=== PATIENT | male | born 1930 | race Caucasian/White ===

== ENCOUNTER 2019-04-17 17:14 | Observation (INO) ==
--- NOTE | 2019-04-17 17:32 | Emergency Department Note ---
ED Disposition Clinical Impression: Chest pain Qualifiers: Chest pain type: precordial pain Qualified Code(s): R07.2 - Precordial pain Ascites Qualifiers: Ascites type: other type Qualified Code(s): R18.8 - Other ascites Disposition: Admitted as Observation Condition on Discharge: Good Referrals: Provider,Referral, [Referring] - - Critical Care Critical Care Time: No Attestation: On , the high probability of a clinically significant, sudden or life threatening deterioration of the following system(s) required my full and direct attention, intervention and personal management. The time I documented below is in addition to time spent performing reported procedures but includes the following listed in this critical care notation. Medical Decision Making - Jason Inquiry Pt receiving controlled substance: No Vital Signs: 04/17/19 17:15 04/17/19 17:59 Pulse Rate [Right] 72 69 Respiratory Rate 18 20 Blood Pressure [Right Arm] 115/58 L 111/68 Blood Pressure Mean [Right Arm] 77 82 Blood Pressure Source [Right Arm] Automatic Cuff Blood Pressure Position [Right Arm] Supine 02 Sat by Pulse Oximetry 98 99 Oxygen Delivery Method Room Air Room Air - Lab Data Lab Results 04/17/19 17:15: WBC 5.6, RBC 3.22 L, Hgb 11.2 L, Hct 34.2 L, MCV 106.3 H, MCH 34.8 H, MCHC 32.7, RDW 15.3, Plt Count 89 L, MPV 10.3, Neut % (Auto) 73.4, Lymph % (Auto) 15.8, [place] % (Auto) 7.8, Eos % (Auto) 2.1, Baso % (Auto) 0.9, Neut # (Auto) 4.1, Lymph # (Auto) 0.9, [place] # (Auto) 0.4, Eos # (Auto) 0.1, Baso # (Auto) 0.1 04/17/19 17:15: Sodium 140, Potassium 3.7, Chloride 106, Carbon Dioxide 24, Anion Gap 13.7, BUN 35 H, Creatinine 2.04 H, Estimated Creat Clear 26, Estimated GFR 31 L, Est GFR ( Amer) 37 L, Glucose 98, Calcium 7.9 L, Troponin I 0.03 Result diagrams: 04/17/19 17:15 04/17/19 17:15 Orders (Tests/Meds): ORDERS Category Date Time Status CXR --portable [XR chest portable] Stat Exams 04/17/19 17:32 Taken Troponin I Q3H Lab 04/17/19 20:45 Ordered Troponin I Q3H Lab 04/17/19 23:45 Ordered - Radiology Data #1 Image(s): Chest Image Reviewed: Yes I reviewed the patient's radiology image Pacemaker. Bilateral pleural effusions. - ECG Data Tracing #1 EKG interpreted by Joey Zhang MD: Rhythm: Ventricular paced rhythm Ectopy: Premature ventricular contractions rate: 79 No evidence of acute ischemia or injury - Physician Consults Physician Consulted: virgen Green Time: 17:49 Reason -: Pt condition Comment/Response: Discussed paracentesis. He says patient could be worked in tomorrow. Additional Consult: Shae Carrion Time: 18:29 Reason -: Admission Comment/Response: Discussed disposition. Agrees to admit the patient to the hospital. We discussed the patient's clinical information, including history, exam, laboratory and radiology results and ED course. Per hospital procedure, I will write temporary bridge inpatient orders on the patient. Specific orders requested by the admitting physician: Serial troponins. Paracentesis in the morning. General Adult HPI - General Stated complaint: chest pain Time Seen by Provider: 04/17/19 17:31 - History of Present Illness HPI narrative: Complains of chest pain that started about an hour and a half ago while at rest. Describes the pressure left anterior chest that lasted for about 30 to 40 minut es. Associated with mild shortness of breath and nausea, but no vomiting. No diaphoresis. Pain-free at this time. Family states that he had the same pain 3 weeks ago and had to have emergency paracentesis. They related his chest pain to increase fluid in his abdomen. He has not had pain since. He has not had pain prior to previous paracentesis. 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 He does have a pacemaker placed by Dr. Negrete. His special assemblies supervisor is Dr. Fabian madison. His metaphysics teacher is Dr. Rivera. His primary care doctor is Dr. Carrion. Family states that he is scheduled for paracentesis on next Sunday, but they do not think he can wait that long. They state that he is abdomen is very full. Currently the patient denies a feeling of abdominal distention or pain or difficulty breathing. They also state that he is scheduled for a full abdominal ultrasound tomorrow morning as an outpatient, ordered by Dr. Rivera. They question whether paracentesis can be performed at that time. - Related Data Home Medications Medication Instructions Recorded Confirmed Calcium Carbonate [Calcium] 600 mg PO DAILY 05/28/17 04/17/19 Magnesium Oxide [Mag-Ox 400mg Tab] 400 mg PO DAILY 05/28/17 04/17/19 Nitroglycerin 0.4 mg SL Q5MINP PRN 05/28/17 04/17/19 Potassium Chloride [Klor-con 20 20 meq PO DAILY 05/28/17 04/17/19 mEq tablet] Simvastatin 10 mg PO DAILY 05/28/17 04/17/19 Allopurinol [Allopurinol 100mg 100 mg PO DAILY 07/18/17 04/17/19 tablet] metolazone 2.5 mg tablet 2.5 mg PO DAILY PRN 10 Days #10 11/01/17 04/17/19 apixaban 2.5 mg tablet 2.5 mg PO DAILY 30 Days #60 01/21/18 04/17/19 Ferrous Sulfate [Ferrous Sulfate 325 mg PO BID 09/27/18 04/17/19 325mg Tablet] torsemide 10 mg tablet 20 mg PO DAILY tab 11/21/18 04/17/19 Nebivolol HCl [Bystolic] 2.5 mg PO HS 01/06/19 04/17/19 [place]-3S/Dha/Epa/Fish Oil/D3 [Fish 1 each PO DAILY 01/06/19 04/17/19 Oil + D3 Softgel] alpha lipoic acid 200 mg capsule 200 mg PO DAILY cap 02/20/19 04/17/19 cholecalciferol (vitamin D3) 50,000 unit PO QWEEK 02/20/19 04/17/19 50,000 unit capsule vitamin E 200 unit capsule 400 unit PO DAILY cap 02/20/19 04/17/19 loperamide 2 mg capsule 2 mg PO Q4H 04/17/19 04/17/19 bwjtqejjddub-sqohaisi-qywsky tablet 1 tab PO DAILY 04/17/19 04/17/19 nebivolol 2.5 mg tablet 2.5 mg PO DAILY 04/17/19 04/17/19 Allergies Allergy/AdvReac Type Severity Reaction Status Date / Time No Known Allergies Allergy Verified 04/17/19 09:11 [facility] History - Hepatitis A Screen Attestation statement:: This patient has been screened for Hepatitis A risk factors. I have reviewed the patient's past medical history: Yes Medical History: Reports:: Arrhythmia, Atrial Fibrillation, Congestive Heart Failure, Chronic Obstructive Pulmonary Disease (COPD), Hyperlipidemia, Hypertension, Internal Pacemaker, Myocardial Infarction, Renal Insufficiency Denies:: Cancer, Diabetes Mellitus Type 1, Diabetes Mellitus Type 2, MRSA Other Medical History: Reports: Anemia, Arthritis, Cataracts Comment: BPH Other Surgeries: Yes: Appendectomy, Cardiac Catheterization (ABLATION, PACEMAKER), Colon Resection, Hernia Repair, Pacemaker, Other Amputation: No Fractures: Yes (right lower leg broken in two places ) Comment: Bilateral inguinal hernia repairs. Small bowel resection for complete obstruction. Prostate Surgery - Social History Smoking Status: Never smoker # Packs/Day (cigarettes): 1 Alcohol Intake: never Alcohol Intake Frequency:: other Substance Use Type: denies use Occupational Status: retired Housing: house Household Members: spouse Family Hx:: Cancer, Heart Attack, Hyperlipidemia, Hypertension ROS Obtained: Yes All systems reviewed & no additional complaints - Constitutional Constitutional: Denies fever(s) - Cardiovascular Cardiovascular: Reports chest pain, Denies diaphoresis - Respiratory Respiratory: Yes dyspnea - Gastrointestinal Gastrointestingal: Reports: bloating, nausea. Denies: abdominal pain, vomiting Physical Exam - General General appearance: alert, in no apparent distress - Head Head exam: atraumatic, normocephalic - Eye Eye exam: Present: normal appearance, EOMI - ENT ENT exam: Present: mucous membranes moist - Neck Neck exam: Present: normal inspection, trachea midline - Chest Chest inspection: Present: normal inspection, symmetric chest wall rise - Respiratory Respiratory exam: Present: normal lung sounds bilaterally. Absent: respiratory distress - Cardiovascular Cardiovascular exam: Present: regular rate, normal rhythm, normal heart sounds - Abdominal Exam Abdominal exam: Present: distention (ascites), normal bowel sounds. Absent: tenderness, guarding, rebound - Extremities Exam Extremities exam: Present: normal capillary refill, other (trace to 1+ pitting edema) - Neurological Exam Neurological exam: Present: alert, oriented X3 - Psychiatric Psychiatric exam: Present: normal affect, normal mood - Skin Skin exam: Present: warm, dry
[2019-04-17 17:41] LABS: Basophils # 0.1 K/mm3 (0-0.2); Basophils % 0.9 % (0.1-2.0); Eosinophils # 0.1 K/mm3 (0.0-0.4); Eosinophils % 2.1 % (0.1-12.0); Hematocrit 34.2 % (42.0-52.0); Hemoglobin 11.2 g/dL (14.1-18.0); Lymphocytes # 0.9 K/mm3 (0.7-4.5); Lymphocytes % 15.8 % (10-50); Mean Corpuscular HGB Conc 32.7 g/dL (31.8-35.4); Mean Corpuscular Volume 106.3 fl (80-94); Mean Platelet Volume 10.3 fl (7.4-10.4); Monocytes # 0.4 K/mm3 (0.1-1.0); Monocytes % 7.8 % (1.7-9.3); Neutrophils # 4.1 K/mm3 (1.8-7.8); Neutrophils % 73.4 % (37.0-80.0); Platelet Count 89 K/mm3 (142-424); Red Blood Count 3.22 M/mm3 (4.60-6.20); Red Cell Distribution Width 15.3 % (11.5-17.5); White Blood Count 5.6 K/mm3 (4.8-10.8)
[2019-04-17 17:53] LABS: Anion Gap 13.7 mEq/L (5-15); Calcium 7.9 mg/dL (8.5-10.1)
--- NOTE | 2019-04-18 07:26 | Pharmacy Consult Notes ---
[facility] Pharmacy VTE Monitoring - Patient Demographics Admission date: 04/17/19 Report Date: 04/18/19 Time: 07:25 Allergies/Adverse Reactions: Patient Allergies No Known Allergies Allergy (Verified 04/17/19 09:11) Height: 1.83 m Weight: 71.724 kg Patient Problems: Current Active Problems Chest pain (Acute) Ascites (Acute) - VTE Risk Labs: VTE Related Lab Results Hgb 11.2 g/dL (14.1-18.0) L 04/17/19 17:15 Hct 34.2 % (42.0-52.0) L 04/17/19 17:15 Plt Count 89 K/mm3 (142-424) L 04/17/19 17:15 BUN 35 mg/dL (7-18) H 04/17/19 17:15 Creatinine 2.04 mg/dL (0.70-1.30) H 04/17/19 17:15 Estimated Creat Clear 26 mL/min (50-200) 04/17/19 17:15 Was VTE Risk Assessment Performed: Yes VTE Score: 7 VTE Risk Level: Moderate Risk Clinical Trial Participant: No - Prophylaxis VTE Prophylaxis Ordered?: Yes Types of VTE Prophylaxis: TEDS Knee High, Pharmacological (eliquis)
--- NOTE | 2019-04-18 08:11 | Electrocardiograph Report ---
APPROVED REPORT Exam: Resting ECG HR:79 bpm ECG Measurements Heart Rate 79 AXES QRSd 138 QRS -64 QT 468 T103 QTc 536 <Conclusion> Electronic ventricular pacemaker Electronically signed by : Manas Campa, 04/18/2019 08:11:25
--- NOTE | 2019-04-18 14:29 | H&P/Discharge Summary ---
<Kenya Angel - Last Filed: 04/18/19 14:25> General - General Admission date:: 04/17/19 Discharge date: 04/18/19 *Admission Date: 04/17/19 *Chief complaint: chest pain, abdominal swelling *History of present illness: Mr. Gallego is an 88-year-old male with a history of hypertension, hyperlipidemia, A. fib, renal insufficiency, and cirrhosis with ascites. He is currently followed by Dr. Bragg and has been getting a paracentesis approximately every 3 weeks. His states he was supposed to have a paracentesis next Sunday, but began having shortness of breath and some chest pain yesterday. He presented to the emergency room for evaluation and was admitted overnight for cardiac monitoring and to have a paracentesis today. He has not had any further chest pain since admission and his cardiac enzymes have returned normal. [facility] History I have reviewed the patient's past medical history: Yes Medical History: Reports:: Arrhythmia, Atrial Fibrillation, Congestive Heart Failure, Chronic Obstructive Pulmonary Disease (COPD), Hyperlipidemia, Hypertension, Internal Pacemaker, Myocardial Infarction, Renal Insufficiency Denies:: Cancer, Diabetes Mellitus Type 1, Diabetes Mellitus Type 2, MRSA *Have you ever received a pneumonia vaccine?: No *Have you received a flu vaccine this season?: No Other Medical History: Reports: Anemia, Arthritis, Cataracts, Other (Cirrhosis with ascites) Laterality Cases: Bilateral: Cataract Other Surgeries: Yes: Appendectomy, Cardiac Catheterization (ABLATION, PACEMAKER), Colonoscopy, Colon Resection, Hernia Repair, Pacemaker, Other (thoracentesis and paracentesis) Amputation: No Fractures: Yes (right lower leg broken in two places ) - *Social History Educational Level: Attended High School Smoking Status: Never smoker # Packs/Day (cigarettes): 1 Alcohol Intake: never Alcohol Intake Frequency:: other Substance Use Type: denies use *Occupational Status:: retired Housing: house Household Members: spouse *Travel in the last 8 weeks: None Family Hx:: Heart Attack, Stroke Review of Systems - Constitutional Reports fatigue, Reports weakness, Reports weight gain, Denies chills - Eyes Denies blurry vision, Denies double vision - ENT Denies nasal congestion, Denies sore throat - *Cardiovascular Reports chest pain, Reports shortness of breath, Denies rapid, pounding, or irregular heartbeat - *Respiratory Denies chest congestion, Denies cough - *Gastrointestinal Reports other (abdominal distention), Denies abdominal pain, Denies loose stools, Denies nausea, Denies vomiting - *Genitourinary Denies difficulty urinating, Denies painful urination - *Musculoskeletal Denies joint pain - *Neurologic Reports weakness, Denies headache(s), Denies dizziness Exam Vital signs and Labs for Last 24 Hours: Temp Pulse Resp BP Pulse Ox 97.5 F L 70 16 108/72 L 97 04/18/19 11:18 04/18/19 12:00 04/18/19 11:18 04/18/19 11:18 04/18/19 11:18 Laboratory Results - last 24 hr 04/17/19 17:15: WBC 5.6, RBC 3.22 L, Hgb 11.2 L, Hct 34.2 L, MCV 106.3 H, MCH 34 .8 H, MCHC 32.7, RDW 15.3, Plt Count 89 L, MPV 10.3, Neut % (Auto) 73.4, Lymph % (Auto) 15.8, [place] % (Auto) 7.8, Eos % (Auto) 2.1, Baso % (Auto) 0.9, Neut # (Auto) 4.1, Lymph # (Auto) 0.9, [place] # (Auto) 0.4, Eos # (Auto) 0.1, Baso # (Auto) 0.1 04/17/19 17:15: Sodium 140, Potassium 3.7, Chloride 106, Carbon Dioxide 24, Anion Gap 13.7, BUN 35 H, Creatinine 2.04 H, Estimated Creat Clear 26, Estimated GFR 31 L, Est GFR ( Amer) 37 L, Glucose 98, Calcium 7.9 L, Troponin I 0.03 04/17/19 20:27: Troponin I 0.04 04/17/19 23:47: Troponin I 0.05 I & O for Last 24 hours: Intake & Output 04/16/19 04/17/19 04/18/19 04/19/19 11:59 11:59 11:59 11:59 Intake Total 240 / 240 Output Total 300 / 300 Balance -300 / -300 240 / 240 Weight 158 lb 1.99 oz - Constitutional no acute distress - *Routine HEENT Exam Head: Present: normocephalic Eye: Present: EOMI, PERRL ENT: Present: mucous membranes moist - *Routine Neck Exam Present: supple. Absent: lymphadenopathy - *Routine Respiratory Exam Present: CTA bilaterally - *Routine Cardiovascular Exam Present: RRR - *Routine Abdominal Exam Present: soft, normoactive bowel sounds, distended (very distended). Absent: tenderness - *Routine Extremities Exam Absent: cyanosis, clubbing, edema - *Routine Skin Exam Present: warm. Absent: rash - *Routine Neurological Exam Present: alert, oriented X3 Hospital Course Hospital Course: The patient had a chest x-ray showing small bilateral pleural effusions. He had an abdominal ultrasound showing diffuse ascites with cirrhosis and a contracted gallbladder with possible cholelithiasis. Dr. Green performed a successful sonographic guided paracentesis without complication and removed approximately 7200 cc of fluid. The patient felt much better and was stable to be discharged home. He will follow-up with Dr. Bragg on an outpatient basis. Results Labs on day of discharge: Labs from last 24 hours 04/17/19 04/17/19 04/17/19 23:47 20:27 17:15 WBC RBC Hgb Hct MCV MCH MCHC RDW Plt Count MPV Neut % (Auto) Lymph % (Auto) [place] % (Auto) Eos % (Auto) Baso % (Auto) Neut # (Auto) Lymph # (Auto) [place] # (Auto) Eos # (Auto) Baso # (Auto) Sodium 140 Potassium 3.7 Chloride 106 Carbon Dioxide 24 Anion Gap 13.7 BUN 35 H Creatinine 2.04 H Estimated Creat Clear 26 Estimated GFR 31 L Est GFR ( Amer) 37 L Glucose 98 Calcium 7.9 L Troponin I 0.05 0.04 0.03 04/17/19 17:15 WBC 5.6 RBC 3.22 L Hgb 11.2 L Hct 34.2 L MCV 106.3 H MCH 34.8 H MCHC 32.7 RDW 15.3 Plt Count 89 L MPV 10.3 Neut % (Auto) 73.4 Lymph % (Auto) 15.8 [place] % (Auto) 7.8 Eos % (Auto) 2.1 Baso % (Auto) 0.9 Neut # (Auto) 4.1 Lymph # (Auto) 0.9 [place] # (Auto) 0.4 Eos # (Auto) 0.1 Baso # (Auto) 0.1 Sodium Potassium Chloride Carbon Dioxide Anion Gap BUN Creatinine Estimated Creat Clear Estimated GFR Est GFR ( Amer) Glucose Calcium Troponin I - Impressions CXR - Small bilateral pleural effusions with bilateral basilar atelectasis, question minimal atelectasis versus infiltrate right upper lobe as well Abdominal U/S - Diffuse ascites with cirrhosis. Contracted gallbladder with possible cholelithiasis Paracentesis - Successful sonographic guided paracentesis without complication. DS: Diagnosis - Discharge Diagnosis (1) Ascites Status: Acute (2) Chest pain Status: Resolved (3) Bilateral pleural effusion Status: Acute (4) BPH (benign prostatic hyperplasia) Status: Chronic (5) COPD (chronic obstructive pulmonary disease) Status: Chronic (6) Chronic atrial fibrillation Status: Chronic (7) Chronic renal insufficiency, stage III (moderate) Status: Chronic (8) HBP (high blood pressure) Status: Chronic (9) Hyperlipidemia Status: Chronic Discharge Plan - Patient Discharge Instructions ACTIVITY: Continue current activity DIET: continue same diet Patient Instructions: DI for Abdominal Paracentesis, Abdominal Paracentesis, DI for Chest Pain - Follow up Plan Follow up with: Mingo Bragg MD [Staff Physician] - 06/30/19 9:30 am Disposition: Home, Self-Correction Medications: Home Medications Medication Instructions Recorded Confirmed Type Calcium Carbonate [Calcium] 600 mg PO DAILY 05/28/17 05/16/19 History Magnesium Oxide [Mag-Ox 400mg Tab] 400 mg PO DAILY 05/28/17 05/16/19 History Nitroglycerin 0.4 mg SL Q5MINP PRN 05/28/17 05/16/19 History Potassium Chloride [Klor-con 20 20 meq PO DAILY 05/28/17 05/16/19 History mEq tablet] Simvastatin 10 mg PO HS 05/28/17 05/16/19 History allopurinoL [Allopurinol 100mg 100 mg PO DAILY 07/18/17 05/15/19 History tablet] metolazone 2.5 mg tablet 2.5 mg PO DAILY PRN 10 Days #10 11/01/17 05/16/19 History apixaban 2.5 mg tablet 2.5 mg PO BID 30 Days #60 01/21/18 05/16/19 History Ferrous Sulfate [Ferrous Sulfate 62.5 mg PO BID 09/27/18 05/16/19 History 325mg Tablet] torsemide 10 mg tablet 20 mg PO DAILY tab 11/21/18 05/16/19 History Nebivolol HCl [Bystolic] 2.5 mg PO HS 01/06/19 05/16/19 History [place]-3S/Dha/Epa/Fish Oil/D3 [Fish 1 each PO DAILY 01/06/19 05/16/19 History Oil + D3 Softgel] alpha lipoic acid 200 mg capsule 200 mg PO DAILY cap 02/20/19 05/15/19 History cholecalciferol (vitamin D3) 50,000 unit PO MONTHLY 02/20/19 05/16/19 History 50,000 unit capsule vitamin E 200 unit capsule 400 unit PO DAILY cap 02/20/19 05/16/19 History loperamide 2 mg capsule 2 mg PO Q4HP PRN 04/17/19 05/16/19 History widdeljsqfrv-mzueuzkk-ayumwk 1 tab PO DAILY 04/17/19 05/16/19 History midodrine 5 mg tablet 5 mg PO BID tab 05/15/19 05/16/19 History Prescriptions/Medication Reconciliation: Continued metolazone 2.5 mg tablet 2.5 mg PO DAILY PRN 10 Days #10 PRN Reason: fluid apixaban 2.5 mg tablet 2.5 mg PO BID 30 Days #60 cholecalciferol (vitamin D3) 50,000 unit capsule 50,000 unit PO MONTHLY vitamin E 200 unit capsule 400 unit PO DAILY cap alpha lipoic acid 200 mg capsule 200 mg PO DAILY cap torsemide 10 mg tablet 20 mg PO DAILY tab [id number]-irdsouzl-yqiamb 1 tab PO DAILY loperamide 2 mg capsule 2 mg PO Q4HP PRN PRN Reason: Diarrhea Simvastatin 10 mg PO HS Nitroglycerin 0.4 mg SL Q5MINP PRN PRN Reason: Chest Pain Magnesium Oxide [Mag-Ox 400mg Tab] 400 mg PO DAILY allopurinoL [Allopurinol 100mg tablet] 100 mg PO DAILY Nebivolol HCl [Bystolic] 2.5 mg PO HS Potassium Chloride [Klor-con 20 mEq tablet] 20 meq PO DAILY Calcium Carbonate [Calcium] 600 mg PO DAILY Ferrous Sulfate [Ferrous Sulfate 325mg Tablet] 62.5 mg PO BID [place]-3S/Dha/Epa/Fish Oil/D3 [Fish Oil + D3 Softgel] 1 each PO DAILY No Action midodrine 5 mg tablet 5 mg PO BID tab - Problem Reconciliation Problems Reviewed?: Yes <Carlos Carrion - Last Filed: 05/17/19 08:30> General - General Admission date:: 04/17/19 Exam Vital signs and Labs for Last 24 Hours: Temp Pulse Resp BP Pulse Ox 97.5 F L 70 16 108/72 L 97 04/18/19 11:18 04/18/19 12:00 04/18/19 11:18 04/18/19 11:18 04/18/19 11:18 DS: Diagnosis - Discharge Diagnosis (1) Ascites Status: Acute (2) Chest pain Status: Resolved (3) Bilateral pleural effusion Status: Acute (4) BPH (benign prostatic hyperplasia) Status: Chronic (5) COPD (chronic obstructive pulmonary disease) Status: Chronic (6) Chronic atrial fibrillation Status: Chronic (7) Chronic renal insufficiency, stage III (moderate) Status: Chronic (8) HBP (high blood pressure) Status: Chronic (9) Hyperlipidemia Status: Chronic Discharge Plan - Problem Reconciliation Problems Reviewed?: Yes - Additional Information Additional Information: Patient seen and examined. Concur with plan for discharge as outlined above.
== END 2019-04-18 14:38 | disposition home or self-care (01) ==
LOC: ER 17:14 → 2ND 17:14
PROVIDERS: ADMIT Family Medicine; ATTEND Family Medicine
CPT/HCPCS: 36415; 49083; 71010; 71045; 76705; 80048; 84484; 85025; 93005; 99284; G0378